=== PATIENT | male | born 1975 | race African-American/Black ===

== ENCOUNTER 2017-06-29 23:23 | Emergency (ER) | payer SELFPAY ==
[~2017-06-29] VITALS: Ht 185.4 cm; Wt 122.5 kg
[2017-06-29 23:23] VITALS: BP 139/72
[2017-06-29] MEDS ORDERED: IBUPROFEN600 MG ORAL (23:41)
[2017-06-29] MEDS ORDERED: TAMIFLU75 MG ORAL (23:41)
--- NOTE | 2017-06-29 23:43 | Emergency Room Report ---
History of Present Illness General Chief Complaint: Generalized Weakness Source: Patient Present Illness HPI This is a 41-year-old male with no past medical history. He presents with generalize weakness and fever. Onset was just prior to arrival. [place] the theater and felt weak and started having a fever. Shaking chills. Has some cough. No nausea no vomiting. No diarrhea. No sick contact. Has generalized body pain that he described as 10 out of 10. Allergies: Coded Allergies: No Known Allergies (Unverified , 06/29/17) Patient History Past Medical History: none, see triage record, old chart reviewed Past Surgical History: none Pertinent Family History: none Social History: Denies: smoking Immunizations: other Reviewed Nursing Documentation: PMH: Agreed, PSxH: Agreed Nursing Documentation-PMH Past Medical History: No Stated History Review of Systems Constitutional: Reports: fever, malaise Eye: Denies: eye pain, blurred vision ENT: Denies: ear pain, nose congestion, throat swelling Respiratory: Reports: cough, Denies: shortness of breath Cardiovascular: Denies: chest pain, palpitations Gastrointestinal: Denies: abdominal pain, diarrhea, nausea, vomiting Musculoskeletal: Denies: back pain, joint pain Skin: Denies: rash Neurological: Denies: headache, numbness Endocrine: Denies: increased thirst, increased urine Hematologic/Lymphatic: Denies: easy bruising All Other Systems: negative except mentioned in HPI Physical Exam Vital Signs Date Time Temp Pulse Resp B/P (MAP) Pulse Ox O2 Delivery O2 Flow Rate FiO2 06/29/17 23:17 103.1 100 139/72 95 Room Air vitals with fever Sp02 EP Interpretation: reviewed, normal General Appearance: well appearing, no apparent distress, alert Head: normocephalic, atraumatic Eyes: bilateral eye PERRL, bilateral eye EOMI ENT: hearing grossly normal, normal pharynx Neck: full range of motion, supple, no meningismus Respiratory: chest non-tender, lungs clear, normal breath sounds Cardiovascular #1: regular rate, rhythm, no murmur Gastrointestinal: normal bowel sounds, non tender, no mass, no organomegaly, no bruit, non-distended Musculoskeletal: back normal, gait/station normal, normal range of motion Psychiatric: mood/affect normal Skin: warm/dry Medical Decision Making Diagnostic Impression: Primary Impression: Influenza ER Course Patient with symptoms consistent with influenza. No evidence of ACS, PE, pneumonia, dissection to name a few. We'll put on Tamiflu since this occurred within 36 hours. Chest X-Ray Diagnostic Results Chest X-Ray Diagnostic Results : Chest X-Ray Ordered: Yes # of Views/Limited/Complete: 1 View Indication: Shortness of Breath EP Interpretation: Yes Interpretation: no consolidation, no effusion, no pneumothorax, no acute cardiopulmonary disease Impression: No acute disease Electronically Signed by: Prasanth Ambriz MD Last Vital Signs Date Time Temp Pulse Resp B/P (MAP) Pulse Ox O2 Delivery O2 Flow Rate FiO2 06/29/17 23:17 103.1 100 139/72 95 Room Air Status: improved Disposition: HOME, SELF-CARE Condition: Stable Scripts Oseltamivir Phosphate (Tamiflu) 75 Mg Capsule 75 MG ORAL TWICE A DAY, #10 CAP Prov: PRASANTH AMBRIZ M.D. 06/29/17 Ibuprofen* (MOTRIN*) 600 Mg Tablet 600 MG ORAL THREE TIMES A DAY, #30 TAB 0 Refills Prov: PRASANTH AMBRIZ M.D. 06/29/17 Additional Instructions: Rest. Increase fluids. Followup with your DrJeyson in 3-5 days. Return if symptom worsen. PRASANTH AMBRIZ M.D. Jun 29, 2017 23:43
[2017-06-29] MEDS ORDERED: Acetaminophen 500mg (ES) tab ORAL ONE (23:45)
[2017-06-30 00:20] VITALS: BP 135/71
--- NOTE | 2017-06-30 11:35 | Diagnostic Imaging Report ---
Indication: Cough Comparison: None A single view chest radiograph was obtained. Findings: Projection angle is very lordotic. Cardiomediastinal appearance is within normal limits for age. Pulmonary vascularity is appropriate. The diaphragmatic contour is smooth and costophrenic angles are sharp. No pleural effusions are identified. The bones are unremarkable. Impression: No acute findings Suboptimal projection angle limits evaluation.
== END 2017-06-30 00:20 | disposition home or self-care (01) ==
LOC: EDBD 23:23 → EMR 23:25
DX: J11.1 Influenza due to unidentified influenza virus with other respiratory manifestations (principal); R53.1 Weakness
CPT/HCPCS: 71010; 99283; J7512